=== PATIENT | female | born 1945 | race Caucasian/White ===

== ENCOUNTER 2018-11-06 16:03 | Inpatient (IN) | payer MEDICARE, OTHER | END 2018-11-10 15:17 | LOC: ER 16:03 → ORTHO 4S 17:55 | PROC: 0QS706Z Reposition Left Upper Femur with Intramedullary Internal Fixation Device, Open Approach (ICD-10-PCS; principal; 2018-11-07 16:18) | DX: S72.042A Displaced fracture of base of neck of left femur, initial encounter for closed fracture (principal); M80.00XA Age-related osteoporosis with current pathological fracture, unspecified site, initial encounter for fracture ==